=== PATIENT | female | born 1945 | race Caucasian/White ===

== ENCOUNTER 2017-06-11 10:57 | Emergency (ER) | END 2017-06-11 15:30 | disposition home or self-care (01) ==

== ENCOUNTER 2018-11-12 00:27 | Emergency (ER) | payer OTHER ==
[~2018-11-12] VITALS: Ht 165.1 cm; Wt 98.5 kg
[~2018-11-12 00:27] MED LIST: HYDR25TA6 PO
[2018-11-12 00:39] VITALS: Ht 165.1 cm; Wt 98.5 kg
--- NOTE | 2018-11-12 03:30 | ERD ---
ER Documentation Chief Complaint Chief Complaint htn at home, c/o headache. denies cp HPI The patient is a 73-year-old female, presenting to the ER because of high blood pressure with dizziness and headache intermittently for the last 5 days. She stopped taking her hypertensive medication a few months ago because she concern about cancer. She denies syncope, near syncope, neck pain, chest pain, dyspnea, abdominal pain, vomiting, dysuria. She does not smoke nor drink, has a lot of stress in her life Past medical history: Hypertension Past surgical history: None ROS All systems reviewed and are negative except as per history of present illness. Medications Home Meds Active Scripts Nifedipine (Procardia Xl) 30 Mg Tab.er.24, 30 MG PO DAILY, #14 TAB Prov:GEO DUFFY MD 11/12/18 Hydrochlorothiazide* (Hydrochlorothiazide*) 25 Mg Tab, 25 MG PO DAILY, #30 TAB Prov:OSCAR LOCKHART MD 06/11/17 Allergies Allergies: Coded Allergies: No Known Allergy (Unverified , 11/12/18) PMhx/Soc History of Surgery: No Anesthesia Reaction: No Hx Neurological Disorder: No Hx Respiratory Disorders: No Hx Cardiac Disorders: No Hx Psychiatric Problems: No Hx Miscellaneous Medical Probl: No Hx Alcohol Use: No Hx Substance Use: No Hx Tobacco Use: No Physical Exam Vitals Vital Signs Date Temp Pulse Resp B/P (MAP) Pulse Ox O2 O2 Flow FiO2 Time Delivery Rate 11/12/18 146/76 05:18 (99) 11/12/18 78 225/105 02:27 (145) 11/12/18 97.4 72 18 211/102 98 00:39 (138) Physical Exam Const: No acute distress. Head: Atraumatic. Eyes: Normal Conjunctiva. ENT: Normal External Ears, Nose and Mouth. Neck: Full range of motion. No meningismus. Resp: Clear to auscultation bilaterally. Cardio: Regular rate and rhythm. Abd: Soft, non distended, normal bowel sounds, non tender. Skin: No petechiae or rashes. Back: No midline or flank tenderness. Ext: No cyanosis, or edema. Neur: Awake and alert. No focal deficit Psych: Normal Mood and Affect. Result Diagram: 11/12/18 0414 11/12/18 0415 Results 24 hrs Laboratory Tests Test 11/12/18 04:14 11/12/18 04:15 White Blood Count 9.9 10^3/ul Red Blood Count 4.75 10^6/ul Hemoglobin 14.6 g/dl Hematocrit 43.0 % Mean Corpuscular Volume 90.5 fl Mean Corpuscular Hemoglobin 30.7 pg Mean Corpuscular Hemoglobin Concent 34.0 g/dl Red Cell Distribution Width 12.6 % Platelet Count 244 10^3/UL Mean Platelet Volume 11.0 fl Immature Granulocytes % 0.200 % Neutrophils % 58.8 % Lymphocytes % 29.7 % Monocytes % 8.6 % Eosinophils % 2.4 % Basophils % 0.3 % Nucleated Red Blood Cells % 0.0 /100WBC Immature Granulocytes # 0.020 10^3/ul Neutrophils # 5.8 10^3/ul Lymphocytes # 2.9 10^3/ul Monocytes # 0.9 10^3/ul Eosinophils # 0.2 10^3/ul Basophils # 0.0 10^3/ul Nucleated Red Blood Cells # 0.0 10^3/ul Sodium Level 143 mmol/L Potassium Level 3.9 mmol/L Chloride Level 106 mmol/L Carbon Dioxide Level 27 mmol/L Anion Gap 10 Blood Urea Nitrogen 14 mg/dl Creatinine 0.80 mg/dl Est Glomerular Filtrat Rate mL/min mL/min Glucose Level 114 mg/dl Calcium Level 9.9 mg/dl Current Medications Medications Dose Sig/Que Start Time Status Last (Trade) Ordered Route PRN Stop Time Admin Dose Reason Admin Nifedipine 30 mg ONCE ONCE 11/12/18 DC 11/12/18 (Procardia PO 04:00 04:38 Xl) 11/12/18 04:01 Procedures/[place] [id number] Radiology Main Line: [phone] DIAGNOSTIC IMAGING REPORT Patient: SARAH SHELTON : 1945 Age: 73 Sex: F MR #: [id number] DOS: 11/12/18 0335 Ordering MD: GEO DUFFY MD Location: E/R Room/Bed: PROCEDURE: CT Brain without contrast. CLINICAL INDICATION: Headache, hypertension TECHNIQUE: A CT of the brain was performed utilizing axial imaging from the skull base through the vertex without IV contrast. Multiplanar reformatted images were made. Images were reviewed on a PACS workstation. CTDIvol: 36.62 mGy DLP: 634.23 mGycm DICOM images are available. One or more of the following dose reduction techniques were utilized: 1.) Automated exposure control 2.) Adjustment of the mA +/- kV according to patient's size 3.) Use of iterative reconstruction technique. COMPARISON: None FINDINGS: CALVARIUM: Regional bones are intact. SINUSES: Paranasal sinuses and mastoid air cells are clear. BRAIN: There is mild cerebral volume loss and subtle diminished attenuation within the periventricular white matter compatible with chronic small vessel ischemic changes. No evidence of an acute territorial infarction. There is no intracranial mass or hemorrhage. Ventricles and cisterns are unremarkable. IMPRESSION: 1. Negative for intracranial hemorrhage or other acute process. 2. Generalized volume loss, mild chronic small vessel ischemic changes. RPTAT: [facility] Physician Kellie Date Time Electronically viewed and signed by Physician Kellie on 11/12/2018 04:57 xB/ CC: GEO DUFFY MD [id number] MEDICAL MAKING DECISION: The patient is a 73-year-old female, presenting with acute hypertensive urgency, treated with Procardia XL 30 mg p.o. with good response, is stable for outpatient follow-up The differential diagnoses considered include but are not limited to subarachnoid hemorrhage, occult trauma, CVA, meningitis, encephalitis, hypertension, tension, migraine, cluster, narcotic withdrawal, cervical spine disease. Departure Diagnosis: Primary Impression: Hypertensive urgency Condition: Good Comments She was discharged with Procardia XL 30 mg daily I discussed the findings with the patient. I advised the patient to follow-up with the primary physician in about 1-2 days, sooner if needed and return if any concern. Disclaimer: Inadvertent spelling and grammatical errors are likely due to EHR/dictation software use and do not reflect on the overall quality of patient care. Also, please note that the electronic time recorded on this note does not necessarily reflect the actual time of the patient encounter. GEO DUFFY MD Nov 12, 2018 03:30
[2018-11-12] MEDS ORDERED: NIFEdipine (XL) 30 MG TAB PO ONE (04:00)
[2018-11-12] MEDS ORDERED: NIFE30TA2 PO (05:35)
[2018-11-12 06:09] VITALS: BP 121/72; PULSE 99; RESP 20
== END 2018-11-12 06:13 | disposition home or self-care (01) ==
LOC: E/R 00:27
DX: I16.0 Hypertensive urgency (principal); R40.2142 Coma scale, eyes open, spontaneous, at arrival to emergency department; R40.2252 Coma scale, best verbal response, oriented, at arrival to emergency department; R40.2362 Coma scale, best motor response, obeys commands, at arrival to emergency department; I10 Essential (primary) hypertension
CPT/HCPCS: 36415; 70450; 80048; 85025; Z7502; Z7610